=== PATIENT | female | born 1970 | race Caucasian/White ===

== ENCOUNTER 2023-09-04 21:39 | Emergency (ER) | payer MEDICAID ==
[~2023-09-04] VITALS: Ht 167.6 cm; Wt 82.0 kg
[2023-09-04 21:49] VITALS: TEMP 98.5; O2SAT 96
[2023-09-05] MEDS ORDERED: AMOX1TAB16 MT (00:06)
[2023-09-05] MEDS ORDERED: TETANUS, DIPHTHERIA, PERTUSSIS VAC/PF 0.5ML (>10YR OLD) IM ONE (00:15)
[2023-09-05 00:49] VITALS: BP 126/56; PULSE 76; RESP 16
== END 2023-09-05 00:50 | disposition home or self-care (01) ==
LOC: ER 21:39
DX: S61.501A Unspecified open wound of right wrist, initial encounter (principal); W54.0XXA Bitten by dog, initial encounter; Y93.89 Activity, other specified; Y92.89 Other specified places as the place of occurrence of the external cause; Y99.8 Other external cause status; Z90.710 Acquired absence of both cervix and uterus
CPT/HCPCS: 90471; 90715; 99283

== ENCOUNTER 2023-11-06 09:42 | Emergency (ER) | payer MEDICAID ==
[~2023-11-06] VITALS: Ht 167.6 cm; Wt 81.6 kg
[~2023-11-06 09:42] MED LIST: AMOX1TAB16 MT
[2023-11-06 09:47] VITALS: TEMP 98.7; O2SAT 100
[2023-11-06 10:25] LABS: EOSINOPHILS % 3.2 % (0.0-5.0); HEMATOCRIT. 37.4 % (36.0-48.0); HEMOGLOBIN. 12.6 g/dL (12.0-16.0); LYMPHOCYTES % 44.9 % (20.0-50.0); MEAN CORPUSCULAR HEMOGLOBIN 31.3 pg (28.0-32.0); MEAN CORPUSCULAR HGB CONC 33.7 g/dL (31.0-37.0); MEAN CORPUSCULAR VOLUME 93.1 fL (81.0-99.0); MEAN PLATELET VOLUME 7.9 fl (7.4-10.4); MONOCYTES % 6.9 % (2.0-8.0); PLATELET 150 x1000/uL (130-400); RED BLOOD CELL COUNT 4.01 mill/uL (4.2-5.4); WHITE BLOOD COUNT 6.5 x1000/uL (4.5-11.0)
[2023-11-06 10:34] LABS: INR 1.1; PROTHROMBIN TIME 11.9 sec (9.6-11.0)
[2023-11-06 10:47] LABS: HCG SCREEN NEGATIVE
[2023-11-06 10:52] LABS: CALCIUM 8.1 mg/dL (8.7-10.4); CARBON DIOXIDE 26 mEq/L (21-32); CHLORIDE 105 mEq/L (98-107); CREATININE 0.6 mg/dL (0.6-1.0); ETHANOL BLOOD 374 mg/dL (<10); GLUCOSE 107 mg/dL (70-105); POTASSIUM 3.5 mEq/L (3.5-5.1); SODIUM 140 mEq/L (136-145); UREA NITROGEN BLOOD 7 mg/dL (9-23)
[2023-11-06] MEDS ORDERED: TOPUD MT (16:23)
[2023-11-06 16:45] VITALS: BP 137/77; PULSE 96; RESP 18
[2023-11-06 17:09] LABS: CLARITY URINE CLEAR (CLEAR); COLOR URINE DARK YELLOW (YELLOW); GLUCOSE URINE NEGATIVE (NEGATIVE); KETONES URINE TRACE (NEGATIVE); LEUKOCYTE ESTERASE URINE TRACE (NEGATIVE); NITRITE URINE NEGATIVE (NEGATIVE); OCCULT BLOOD URINE 1+ (NEGATIVE); PROTEIN URINE 1+ (NEGATIVE); SPECIFIC GRAVITY URINE 1.021 (1.005-1.030)
[2023-11-06 17:23] LABS: BACTERIA URINE 1+; SQUAMOUS EPITHELIAL CELL URINE 1+ /lpf (RARE/1+)
[2023-11-06 17:24] LABS: MUCUS URINE 2+ /lpf (< = 2+); WBC URINE 0-2 /hpf (0-2)
[2023-11-06 17:35] LABS: *AMPHETAMINES SCREEN URINE NEGATIVE (NEGATIVE); *BARBITURATES SCREEN URINE NEGATIVE (NEGATIVE); *BENZODIAZEPINES SCREEN URINE NEGATIVE (NEGATIVE); *COCAINE SCREEN URINE NEGATIVE (NEGATIVE); CANNABINOID URINE SCREEN NEGATIVE (NEGATIVE); ECSTASY MDMA SCREEN URINE NEGATIVE (NEGATIVE); METHADONE URINE SCREEN Neg (NEGATIVE); OPIATES URINE SCREEN NEGATIVE (NEGATIVE); PHENCYCLIDINE URINE SCREEN NEGATIVE (NEGATIVE)
== END 2023-11-06 16:45 | disposition home or self-care (01) ==
LOC: ER 10:18
DX: S09.90XA Unspecified injury of head, initial encounter (principal); R56.9 Unspecified convulsions; Z90.710 Acquired absence of both cervix and uterus; X58.XXXA Exposure to other specified factors, initial encounter; Y93.89 Activity, other specified; Y92.89 Other specified places as the place of occurrence of the external cause; Y99.8 Other external cause status
CPT/HCPCS: 36415; 80048; 80305; 80320; 81003; 84703; 85025; 99284; G0480